=== PATIENT | male | born 1945 | race Caucasian/White ===

== ENCOUNTER 2016-07-26 09:39 | Outpatient (CLI) | payer MEDICARE ==
[2016-07-26 10:49] LABS: #Basophils 0.1 thou/uL (0.0-0.2); #Eosinphils 0.3 thou/uL (0.0-0.7); #Lymphocytes 2.1 thou/uL (1.20-3.40); #Monocytes 0.7 thou/uL (0.11-0.59); #Neutrophils 7.3 thou/uL (1.40-6.50); %Basophils 0.6 % (0.0-1.0); %Eosinophils 2.6 % (0.0-10.0); %Monocytes 6.4 % (0.0-10.0); Hematocrit 50.7 % (42.0-52.0); Mean Platelet Volume 7.2 fL (7.4-10.4); Red Blood Cell (RBC) Count 5.32 mill/uL (4.70-6.10); White Blood Cell (WBC) Count 10.4 thou/uL (4.8-10.8)
[2016-07-26 11:52] LABS: ALT (SGPT) 18 U/L (0-55); AST (SGOT) 18 U/L (5-34); Alkaline Phosphatase 77 U/L (40-150); Anion Gap 15 mmol/L (10-20); BUN (Urea Nitrogen) 16 mg/dL (8.4-25.7); Bilirubin, Total 0.8 mg/dL (0.2-1.2); Calc. Creatinine Clearance 0 mL/min (70-130); Calcium 9.1 mg/dL (7.8-10.44); Carbon Dioxide 22 mmol/L (23-31); Chloride 107 mmol/L (98-107); Estimated GFR-MDRD 82; Protein, Total 7.1 g/dL (5.8-8.1)
== END 2016-07-26 09:40 | disposition home or self-care (01) ==
LOC: HPCALD 09:39
PROVIDERS: ATTEND Family Medicine
DX: I10 Essential (primary) hypertension (principal)
CPT/HCPCS: 36415; 80053; 84443; 85025

== ENCOUNTER 2019-01-16 11:35 | Outpatient (CLI) | payer MEDICARE ==
[2019-01-16 16:53] LABS: Bacteria/HPF None Seen HPF (None Seen); Bilirubin Negative (Negative); Blood, Urine Negative (Negative); Clarity Clear (Clear); Glucose, Urine (Dipstick) Normal (Negative); Leukocyte Negative Leu/uL (Negative); Nitrite Negative (Negative); Protein, Urine (Dipstick) 10 mg/dL (Neg-Trace); RBC/HPF 0-3 HPF (0-3); Squamous Epithelial None Seen HPF (0-3); WBC/HPF 0-3 HPF (0-3)
--- NOTE | 2019-01-16 17:42 | RAD ---
CHEST THREE VIEWS: 01/16/19 Comparison is made with the prior study dated 01/02/15. The cardiac size is stable. There is no vascular congestion or edema. The lungs are clear with no lob ar infiltrate to suggest pneumonia. The lungs are mildly hyperexpanded. A little lingular streaking i s probably some scarring. Calcification is seen in the aortic arch. IMPRESSION: Mild hyperinflation of the lungs but no evidence of focal pneumonia. POS: HOME
== END 2019-01-16 11:36 | disposition home or self-care (01) ==
LOC: BURRAD 11:35
PROVIDERS: ATTEND Family Medicine
DX: D72.825 Bandemia (principal); R35.0 Frequency of micturition; R91.8 Other nonspecific abnormal finding of lung field
CPT/HCPCS: 71046; 81001; 87086

== ENCOUNTER 2022-08-23 10:04 | Outpatient (CLI) | payer MEDICARE | END 2022-08-23 10:05 | disposition home or self-care (01) | LOC: BURRAD 10:04 | PROVIDERS: ATTEND Family Medicine | DX: R60.0 Localized edema (principal) | CPT/HCPCS: 71046 ==